=== PATIENT | female | born 1970 | race Caucasian/White ===

== ENCOUNTER 2016-09-16 20:48 | Emergency (ER) | payer OTHER | END 2016-09-16 22:05 | disposition home or self-care (01) | LOC: ER1 20:48 | DX: S52.121A Displaced fracture of head of right radius, initial encounter for closed fracture (principal); W01.198A Fall on same level from slipping, tripping and stumbling with subsequent striking against other object, initial encounter; Z88.5 Allergy status to narcotic agent; Z88.1 Allergy status to other antibiotic agents | CPT/HCPCS: 73080; 99283 ==

== ENCOUNTER → 2016-09-23 | Outpatient (CLI) | payer OTHER | LOC: KOH-I 13:00 | DX: S42.409A Unspecified fracture of lower end of unspecified humerus, initial encounter for closed fracture (principal); S52.041A Displaced fracture of coronoid process of right ulna, initial encounter for closed fracture | CPT/HCPCS: 73200 ==